=== PATIENT | male | born 1995 | race African-American/Black ===

== ENCOUNTER 2019-05-22 08:57 | Inpatient (IN) | payer OTHER ==
[~2019-05-22] VITALS: Ht 182.9 cm; Wt 92.5 kg
[2019-05-22 09:37] LABS: BASOPHILS % (AUTO) 0.4 % (0.0-2.0); EOSINOPHILS % (AUTO) 1.6 % (1.0-6.0); HEMATOCRIT 43.3 % (41-53); HEMOGLOBIN 14.5 g/dL (13.5-17.5); LYMPHOCYTES # (AUTO) 2.4 K/uL (1.0-4.8); LYMPHOCYTES % (AUTO) 30.9 % (22.0-44.0); MEAN CORPUSCULAR HEMOGLOBIN 30.4 pg (26.0-34.0); MEAN CORPUSCULAR HGB CONC 33.6 G/dL (31.0-37.0); MEAN CORPUSCULAR VOLUME 91 fL (80-100); MONOCYTES # (AUTO) 0.5 K/uL (0.1-1.0); MONOCYTES % (AUTO) 6.7 % (2.0-9.0); NEUTROPHILS # (AUTO) 4.6 K/uL (1.8-7.7); NEUTROPHILS % (AUTO) 60.4 % (40.0-70.0); PLATELET COUNT (AUTO) 241 K/uL (150-450); RED BLOOD CELL COUNT(AUTO) 4.79 MIL/uL (4.50-5.90); RED CELL DISTRIBUTION WIDTH 12.6 % (11.5-14.5)
[2019-05-22 09:46] LABS: ANION GAP 6 mmol/L (8-16); CALCIUM, TOTAL 9.4 mg/dL (8.8-10.5); CARBON DIOXIDE 32 mmol/L (22-29); CHLORIDE 105 mmol/L (98-107); CREATININE 0.91 mg/dL (0.60-1.30); GLOMERULAR FILTR. RATE CALC > 60 mL/min (>60); GLUCOSE,RANDOM 98 mg/dL (70-110); POTASSIUM 4.3 mmol/L (3.5-5.1); SODIUM SERUM 143 mmol/L (136-145); UREA NITROGEN, BLOOD 9 mg/dL (7-18)
[2019-05-22 09:52] LABS: ALANINE AMINOTRANSFERASE 32 U/L (12-78); ALBUMIN 4.1 g/dL (3.4-5.0); ALKALINE PHOSPHATASE 60 U/L (46-116); ASPARTATE AMINOTRANSFERASE 17 U/L (15-37); BILIRUBIN,TOTAL 0.2 mg/dL (0.1-1.0); TOTAL PROTEIN, SERUM 7.6 g/dL (6.4-8.2)
[2019-05-22] MEDS ORDERED: LORazepam 1 MG TABLET PO PRN (10:30)
[2019-05-22] MEDS ORDERED: MAGNESIUM HYDROXIDE SUSPENSION 30 ML UDCUP PO PRN (10:30)
[2019-05-22] MEDS ORDERED: ACETAMINOPHEN 325 MG TABLET PO PRN (10:30)
[2019-05-22 10:46] VITALS: BP 119/48
[2019-05-22] MEDS ORDERED: INFLUENZA VIRUS VACCINE QVS 2019-20 (3YR+)/PF 60 MCG/0.5 ML SYRINGE IM ONE (12:45)
[2019-05-22 15:59] VITALS: BP 112/61
[2019-05-22 19:44] VITALS: BP 130/79
[2019-05-23 06:12] VITALS: BP 133/81
[2019-05-23 07:45] VITALS: BP 113/56
[2019-05-23] MEDS: FAMOTIDINE 20 MG TABLET PO SCH (08:09)
[2019-05-23 08:25] LABS: AMPHET/METH SCREEN,URINE POSITIVE (NEGATIVE); BARBITURATE SCREEN, URINE NEGATIVE (NEGATIVE); BENZODIAZEPINES SCREEN,URINE POSITIVE (NEGATIVE); CANNABINOID SCREEN,URINE NEGATIVE (NEGATIVE); COCAINE SCREEN,URINE NEGATIVE (NEGATIVE); METHADONE SCREEN, URINE NEGATIVE (NEGATIVE); OPIATE SCREEN,URINE POSITIVE (NEGATIVE)
[2019-05-23 08:27] LABS: PHENCYCLIDINE SCREEN,URINE NEGATIVE (NEGATIVE)
[2019-05-23] MEDS: THIAMINE HCL 100 MG TABLET PO SCH (12:31)
[2019-05-23] MEDS: MULTIVITAMINS WITH MINERALS, THERAPEUTIC TABLET PO SCH (12:31)
[2019-05-23] MEDS: FOLIC ACID 1 MG TABLET PO SCH (12:31)
[2019-05-23 16:33] VITALS: BP 118/71
[2019-05-23 20:00] VITALS: BP 122/84
[2019-05-24 05:44] VITALS: BP 123/76
[2019-05-24 08:01] VITALS: BP 103/59
[2019-05-24] MEDS: FOLIC ACID 1 MG TABLET PO SCH (08:01)
[2019-05-24] MEDS: THIAMINE HCL 100 MG TABLET PO SCH (08:01)
[2019-05-24] MEDS: FAMOTIDINE 20 MG TABLET PO SCH (08:01)
[2019-05-24] MEDS: MULTIVITAMINS WITH MINERALS, THERAPEUTIC TABLET PO SCH (08:01)
[2019-05-24] MEDS ORDERED: ACET-3207 PO (09:05)
[2019-05-24] MEDS ORDERED: MOM30 PO (09:05)
== END 2019-05-24 10:43 | DRG 918 ==
LOC: EMS 08:58 → 6S 10:20
PROVIDERS: ADMIT Internal Medicine; ATTEND Internal Medicine
DX: T43.621A Poisoning by amphetamines, accidental (unintentional), initial encounter (principal); F11.20 Opioid dependence, uncomplicated; T40.2X1A Poisoning by other opioids, accidental (unintentional), initial encounter; T42.4X1A Poisoning by benzodiazepines, accidental (unintentional), initial encounter; F17.200 Nicotine dependence, unspecified, uncomplicated; Z02.89 Encounter for other administrative examinations
CPT/HCPCS: G0480